=== PATIENT | female | born 1990 | race Hispanic/Latino ===

== ENCOUNTER 2017-12-03 06:58 | Day surgery (SDC) | payer BC ==
[2017-12-02 13:05] VITALS: BMI 18.8
[2017-12-03 08:47] LABS: BHCG - Serum Negative (NEGATIVE); Pregs Control Background? CLEAR/WHITE (CLR/WHITE); Pregs Control Bar Appear? YES (CONTROL BAR)
[2017-12-03] MEDS ORDERED: Fentanyl 100 MCG/2 ML VIAL ONE ×2 (09:04→10:35)
[2017-12-03] MEDS ORDERED: Midazolam HCl 2 mg/2 ml Vial ONE (09:04)
--- NOTE | 2017-12-03 09:56 | OP ---
PREOPERATIVE DIAGNOSIS: Chronic tonsillitis, recurrent tonsillitis. POSTOPERATIVE DIAGNOSIS: Chronic tonsillitis, recurrent tonsillitis. PROCEDURE: Tonsillectomy over 12 years. PROCEDURE IN DETAIL: After consent was obtained, the patient was identified, brought to the operatin g room, and placed on the operating table in the supine position. General endotracheal anesthesia an d intravenous access was obtained and we proceeded with positioning the patient for oropharyngeal maurilio carmella. Oropharyngeal exposure was obtained with a Misa-Elieser mouth gag after a head drape was placed and secured with a towel clip. The Misa-Elieser mouth gag was then suspended from the Pickard tray and palatal elevation was achieved with a red rubber catheter. The right tonsil was addressed first. We used a curved Allis to grasp the tonsil and retract it medially as an anterior pillar incision was m sheila with a #12 blade. The retrotonsillar fascial plane was then established and blunt dissection was performed with the suction cautery. Blood vessels were anticipated, identified, and cauterized as t hey were encountered. Ultimately, dissection was carried to the posterior tonsillar pillar mucosa wh ich was incised hemostatically, as well as the base of tongue connection. The tonsil was then passed off as a specimen and bleeding points within the tonsillar bed were cauterized under direct visualiz ation. We subsequently turned our attention to the contralateral side, where using a similar techniq ue, a near identical procedure was performed. Again, the tonsil was grasped and retracted medially w ith a curved Allis as an anterior pillar incision was made with a #12 blade. The retrotonsillar fasc ial plane was established and while the anterior pillar was retracted medially, the hemostatic blunt dissection of the tonsil with a suction cautery was performed with blood vessels anticipated, identif ied, and cauterized as they were encountered. Again, dissection continued to the base of tongue and posterior tonsillar pillar mucosa which was incised in a hemostatic fashion. The tonsillar beds were then carefully inspected and bleeding points were identified and cauterized with a suction cautery. After this portion of the procedure, hemostasis was completely obtained. The patient's oral cavity was copiously irrigated with iced saline and subsequently suctioned. We then used the red rubber cat heter to suction the gastric contents and the patient was subsequently aroused, awakened, and extubat ed without difficulty and transported to the recovery room in stable condition. There were no compli cations.
== END 2017-12-03 12:30 | disposition home or self-care (01) ==
LOC: SDC 06:58
PROVIDERS: ATTEND Specialist
PROC: 0CTPXZZ Resection of Tonsils, External Approach (ICD-10-PCS; principal; 2017-12-03)
DX: J03.91 Acute recurrent tonsillitis, unspecified (principal); J35.01 Chronic tonsillitis; Z79.899 Other long term (current) drug therapy; Z98.82 Breast implant status
CPT/HCPCS: 36415; 84703; 85014; 88304; 96374; J2250; J3010

== ENCOUNTER 2018-09-27 05:30 | Inpatient (IN) | payer BC ==
[2018-09-27] MEDS ORDERED: Acetaminophen 500 MG TAB PO PRN (06:31)
[2018-09-27] MEDS ORDERED: Promethazine HCl 25 MG/ML VIAL IM PRN ×2 (06:31→09:23)
[2018-09-27] MEDS ORDERED: Butorphanol Tartrate 1 MG/ML VIAL SLOW IVP PRN (06:31)
[2018-09-27] MEDS ORDERED: Ondansetron PF 4 MG/2 ML Vial IVP PRN ×3 (06:31→17:35)
[2018-09-27] MEDS ORDERED: HYDROcodone/Acetaminophen 5/325 mg Tablet PO PRN ×4 (06:45→17:35)
[2018-09-27] MEDS ORDERED: Carboprost 250 MCG/ML AMP IM PRN (06:45)
[2018-09-27] MEDS ORDERED: NS w/ Oxytocin 10 units 500 ML IV SCH ×2 (06:45)
[2018-09-27] MEDS ORDERED: Lidocaine 1% (PF) 30 ML VIAL SC PRN (06:45)
[2018-09-27] MEDS ORDERED: Misoprostol 200 MCG TAB RC PRN (06:45)
[2018-09-27] MEDS ORDERED: Ibuprofen 800 MG TAB PO PRN (06:45)
[2018-09-27] MEDS ORDERED: Methylergonovine 0.2 MG/ML VIAL IM PRN (06:45)
[2018-09-27] MEDS: Lactated Ringer's 1,000 ML IV SCH ×3 (07:06→15:55)
[2018-09-27 07:31] LABS: Mean Corpuscular HGB CONC 35.3 g/dL (32.0-36.0); Mean Corpuscular Hemoglobin 33.2 pg (27.0-31.0); Mean Corpuscular Volume 94.1 fL (78.0-98.0); Mean Platelet Volume 8.6 fL (7.4-10.4); Platelet Count 128 thou/uL (130-400); RBC Distribution Width 11.6 % (11.5-14.5); Red Blood Cell (RBC) Count 3.93 mill/uL (4.20-5.40); White Blood Cell (WBC) Count 7.7 thou/uL (4.8-10.8)
[2018-09-27 07:32] VITALS: BMI 24.5
[2018-09-27 08:13] LABS: HBSAg Index 0.19 S/CO (0-0.99); Hep B Surf Ag Non-Reactive S/CO (NonReactive); Syphilis Antibody Nonreactive (Nonreactive); Syphilis Antibody Index 0.07 S/CO (<1.00 Non-Reactive)
[2018-09-27] MEDS ORDERED: Fentanyl 4 mcg/Bup 0.1% Cadd 100 ML ONE (08:46)
[2018-09-27] MEDS ORDERED: Eucerin (Mineral Oil/Petrolatum,White) 30 gm Jar TOP PRN (09:23)
[2018-09-27] MEDS ORDERED: Lactated Ringer's 500 ML IV PRN (09:23)
[2018-09-27] MEDS ORDERED: Acetaminophen 325 MG TAB PO PRN (09:23)
[2018-09-27] MEDS ORDERED: Naloxone HCl 0.4 mg/ml Vial IVP PRN ×2 (09:23)
[2018-09-27] MEDS ORDERED: diphenhydrAMINE 50 MG/ML VIAL IVP PRN (09:23)
[2018-09-27] MEDS ORDERED: ePHEDrine/0.9% NaCl/PF SYRINGE 50 mg/10 ml SLOW IVP PRN (09:23)
[2018-09-27] MEDS ORDERED: Communication Order-Pharmacy FS SCH (09:30)
[2018-09-27] MEDS ORDERED: Fentanyl 4 mcg/Bupivacaine 0.1% Cassette 100 ML EPIDURAL SCH (09:30)
[2018-09-27] MEDS: NS / Oxytocin 40 units/1000ml 1,000 ML IV SCH ×2 (17:16→17:54)
[2018-09-27] MEDS ORDERED: Adacel (T-DAP) 0.5 ML VIAL IM ONE (17:35)
[2018-09-27] MEDS ORDERED: Lanolin Ointment 7 GM TUBE TOP PRN (17:35)
[2018-09-27] MEDS ORDERED: Zolpidem Tartrate 5 MG TAB PO PRN (17:35)
[2018-09-27] MEDS ORDERED: Milk Of Magnesia 30 ML UDCUP PO PRN (17:35)
[2018-09-27] MEDS ORDERED: Benzocaine/Menthol 20-0.5% 60 ML CAN TOP PRN (17:35)
[2018-09-27] MEDS ORDERED: Preparation H Ointment 28 GM TUBE PR PRN (17:35)
[2018-09-27] MEDS ORDERED: Bisacodyl 10 MG SUPP PR PRN (17:35)
[2018-09-27] MEDS ORDERED: NS / Oxytocin 40 units/1000ml 1,000 ML IV SCH (17:45)
--- NOTE | 2018-09-27 21:20 | OP ---
DATE OF PROCEDURE: 09/27/2018 PREOPERATIVE DIAGNOSES: 1. A 28-year-old G3, P2 with an induction of labor at 39 weeks for history of a fourth and third deg ree laceration with previous deliveries. 2. Pitocin per protocol. 3. Amniotic for artificial rupture of membranes with clear fluid. 4. GBS negative. POST-DELIVERY DIAGNOSES: 1. A 28-year-old G3, P2 with an induction of labor at 39 weeks for history of a fourth and third deg ree laceration with previous deliveries. 2. Pitocin per protocol. 3. Amniotic for artificial rupture of membranes with clear fluid. 4. GBS negative. 5. Liveborn female infant with Apgars of 9 and 9 at 1 and 5 minutes respectively. SURGEON: Ana Arellano M.D. QUANTITATIVE BLOOD LOSS: 240 mL. CLINICAL HISTORY: This patient is a 28-year-old G3, P2 who had an uneventful course. The p atient has a significant history of two vaginal deliveries, the first with third degree laceration an d the 2nd with a fourth degree laceration both after 40 weeks. The patient was counseled on concerns for continued damage to the perineum and was advised to have an induction of labor at 39 weeks. The risks, benefits and possible complications were discussed with the patient and the patient agreed. She was set for an induction after 39 weeks and the morning of the induction she presented. She was rox every 10 minutes; however, was not uncomfortable with these contractions. She was noted to be 3 cm, 70% effaced and -2 station and amniotomy was performed and Pitocin was started. The shelia ent continued to progress and requested an epidural for maternal analgesia. Once this was placed, therese ferrer continued to progress on low dose Pitocin and was noted that she had a category 2 tracing with Ubaldo marlon any higher than 2 milliunits. The patient was then checked again and was noted to be complete ce rvical dilation and +2 station. She then began to push. DETAILS OF PROCEDURE: With good maternal effort, the patient was able to push the vertex to th e position in JOVANI position. After the head was delivered, the anterior shoulder followed by the posterior shoulder was delivered, then the remainder of the 's body. The cord was doubly clamped and cut and the has cried spontaneously. The infant was then placed on the maternal a bdomen. Thus, the gender was a surprise and then announced that it was a baby girl. The cord blood was then obtained and then the placenta was delivered spontaneously intact with a 3-vessel cord. Exp loration of the vagina introitus and perineum noted a first-degree midline laceration which was repai red in a running fashion with excellent hemostasis. The patient was able to recover in satisfactory condition on the labor and delivery floor with her . Again, the infant was a liveborn female w ith Apgars of 9 and 9 at 1 and 5 minutes respectively. There were no other issues surrounding this d elivery.
[2018-09-27] MEDS: Ibuprofen 800 MG TAB PO SCH (21:25)
[2018-09-27] MEDS: Docusate Calcium (SURFAK) 240 MG CAP PO SCH (21:26)
[2018-09-28] MEDS: Ibuprofen 800 MG TAB PO SCH ×3 (05:40→21:13)
[2018-09-28] MEDS: Ferrous Sulfate 325 MG TAB PO SCH ×2 (09:36→16:59)
[2018-09-28] MEDS: Docusate Calcium (SURFAK) 240 MG CAP PO SCH (09:55)
[2018-09-28] MEDS: Prenatal Vitamin 1 TAB PO SCH (09:55)
[2018-09-28] MEDS ORDERED: Bupivacaine/Epinephrine 0.25% 30 ML VIAL ONE (18:00)
[2018-09-29] MEDS: Docusate Calcium (SURFAK) 240 MG CAP PO SCH ×2 (00:33→09:19)
[2018-09-29] MEDS: Ibuprofen 800 MG TAB PO SCH ×2 (05:49→14:04)
[2018-09-29 07:56] VITALS: BP 112/66; TEMP 98.2
[2018-09-29] MEDS: Ferrous Sulfate 325 MG TAB PO SCH (09:01)
[2018-09-29] MEDS: Prenatal Vitamin 1 TAB PO SCH (09:19)
== END 2018-09-29 16:50 | disposition home or self-care (01) | DRG 807 ==
LOC: L&D 05:57 → 3SW 18:21
PROVIDERS: ADMIT Obstetrics & Gynecology; ATTEND Obstetrics & Gynecology
PROC: 10E0XZZ Delivery of Products of Conception, External Approach (ICD-10-PCS; principal; 2018-09-27)
PROC: 10907ZC Drainage of Amniotic Fluid, Therapeutic from Products of Conception, Via Natural or Artificial Opening (ICD-10-PCS; 2018-09-27)
PROC: 3E033VJ Introduction of Other Hormone into Peripheral Vein, Percutaneous Approach (ICD-10-PCS; 2018-09-27)
PROC: 0HQ9XZZ Repair Perineum Skin, External Approach (ICD-10-PCS; 2018-09-27)
DX: O70.0 First degree perineal laceration during delivery (principal); Z37.0 Single live birth; Z3A.39 39 weeks gestation of pregnancy
CPT/HCPCS: 51702; 85027; 86780; 86850; 86900; 86901; 87340; J2001